=== PATIENT | male | born 1990 | race Caucasian/White ===

== ENCOUNTER 2021-02-15 18:09 | Emergency (ER) | payer OTHER ==
[2021-02-15 18:16] VITALS: TEMP 98; BMI 34.2
[2021-02-15] MEDS ORDERED: SODIUM CHLORIDE 0.9% 500 ML INFUS.BAG IV ONE ×2 (18:31→19:25)
[2021-02-15] MEDS ORDERED: KETOROLAC TROMETHAMINE 30 MG/1 ML VIAL IVPUSH ONE (18:31)
[2021-02-15] MEDS ORDERED: ONDANSETRON 4 MG/2 ML VIAL IVPUSH ONE (18:32)
[2021-02-15] MEDS ORDERED: KETOROLAC TROMETHAMINE 30 MG/1 ML VIAL ONE ×2 (18:34→18:39)
[2021-02-15] MEDS ORDERED: ONDANSETRON 4 MG/2 ML VIAL ONE ×2 (18:34→18:39)
[2021-02-15 18:56] LABS: BASO % 0.3 % (0-2.0); EOS % 0.1 % (0-4.5); HEMATOCRIT 46.7 % (35.4-49); HEMOGLOBIN 15.1 GM/dL (11.7-16.9); LYMPH % 9.6 % (8-40); MCH 25.9 pg (25.7-33.7); MCHC 32.2 g/dl (32.0-35.9); MEAN CELL VOLUME 80.6 fl (80-96); MEAN PLT VOLUME 10.8 fl (7.5-11.1); MONO % 6.1 % (3.8-10.2); NEUT % 83.9 % (42.8-82.8); PLATELET COUNT 229 K/MM3 (134-434); RDW 13.7 % (11.9-15.9); WHITE BLOOD COUNT 15.3 K/mm3 (4.0-10.0)
[2021-02-15 18:58] LABS: EPI CELLS 3 /uL (0-25.1); HYALINE CASTS 0 /uL (0-3.1); PH,URINE 7.5 (5.0-8.0); URINE APPEARANCE CLEAR; URINE BACTERIA 58 /uL (0-1359); URINE BILIRUBIN NEGATIVE (NEGATIVE); URINE COLOR YELLOW; URINE GLUCOSE (UA) NEGATIVE (NEGATIVE); URINE KETONE NEGATIVE (NEGATIVE); URINE LEUK ESTERASE NEGATIVE (NEGATIVE); URINE NITRITE NEGATIVE (NEGATIVE); URINE PROTEIN 1+ (NEGATIVE); URINE RBC 41 /uL (0-23.9); URINE UROBILINOGEN 0.2 mg/dL (0.2-1.0); URINE WBC 3 /uL (0-25.8)
[2021-02-15 19:12] LABS: ALBUMIN 4.3 g/dl (3.4-5.0)
[2021-02-15 19:13] LABS: BLOOD UREA NITROGEN 20.6 mg/dL (7-18)
[2021-02-15 19:16] LABS: CREATININE 1.4 mg/dL (0.55-1.3)
[2021-02-15 19:17] LABS: BILIRUBIN,TOTAL 0.2 mg/dL (0.2-1); TOT PROT 8.8 g/dl (6.4-8.2)
[2021-02-15 20:44] VITALS: BP 138/88; PULSE 70
== END 2021-02-15 20:46 | disposition home or self-care (01) ==
LOC: JER 18:09
PROC: 3E0333Z Introduction of Anti-inflammatory into Peripheral Vein, Percutaneous Approach (ICD-10-PCS; principal; 2021-02-15)
PROC: 3E033GC Introduction of Other Therapeutic Substance into Peripheral Vein, Percutaneous Approach (ICD-10-PCS; 2021-02-15)
DX: N20.0 Calculus of kidney (principal)
CPT/HCPCS: 36415; 74176-TC; 80053; 81003; 85025; 87086; 99284-25

== ENCOUNTER 2021-04-02 04:19 | Day surgery (SDC) | payer OTHER ==
[2021-04-01 16:48] VITALS: BMI 33.2
[2021-04-02] MEDS ORDERED: MIDAZOLAM HCL 2 MG/2 ML SINGLE DOSE VIAL ONE ×2 (12:56→13:25)
[2021-04-02] MEDS ORDERED: PROPOFOL 20 ML ONE ×3 (12:57)
[2021-04-02] MEDS ORDERED: LIDOCAINE HCL/PF 2% SDV 5ML VIAL ONE (12:57)
[2021-04-02] MEDS ORDERED: ceFAZolin SODIUM 1 GM VIAL IVPB ONE (13:05)
[2021-04-02] MEDS ORDERED: ceFAZolin SODIUM 1 GM VIAL ONE (13:08)
[2021-04-02] MEDS ORDERED: ePHEDrine SULFATE 50 MG/1 ML AMPULE ONE (13:44)
[2021-04-02] MEDS ORDERED: IOHEXOL 300 MG/ML INFUS..BTL IV ONE (13:44)
[2021-04-02] MEDS ORDERED: oxyCODONE HCL 5 MG TABLET PO PRN (14:01)
[2021-04-02] MEDS ORDERED: ONDANSETRON 4 MG/2 ML VIAL IVPUSH PRN (14:01)
[2021-04-02] MEDS ORDERED: LACTATED RINGERS SOLUTION 1,000 ML IV SCH (14:15)
[2021-04-02] MEDS ORDERED: oxyCODONE HCL 5 MG TABLET ONE (17:06)
[2021-04-02 17:15] VITALS: BP 134/82; PULSE 55; TEMP 97.7
== END 2021-04-02 18:25 | disposition home or self-care (01) ==
LOC: JASU-SURG 04:19
PROVIDERS: ATTEND Urology
PROC: 0T9780Z Drainage of Left Ureter with Drainage Device, Via Natural or Artificial Opening Endoscopic (ICD-10-PCS; principal; 2021-04-02 13:27)
DX: N20.1 Calculus of ureter (principal)
CPT/HCPCS: 94760

== ENCOUNTER 2021-05-26 04:19 | Day surgery (SDC) | payer OTHER ==
[2021-05-25 16:47] VITALS: BMI 32.8
[2021-05-26] MEDS ORDERED: MIDAZOLAM HCL 2 MG/2 ML SINGLE DOSE VIAL ONE (08:00)
[2021-05-26] MEDS ORDERED: PROPOFOL 20 ML ONE ×2 (08:06)
[2021-05-26] MEDS ORDERED: KETOROLAC TROMETHAMINE 30 MG/1 ML VIAL ONE (08:08)
[2021-05-26 10:29] VITALS: BP 132/80; PULSE 72; TEMP 97.7
== END 2021-05-26 10:40 | disposition home or self-care (01) ==
LOC: JASU-SURG 04:19
PROVIDERS: ATTEND Urology
PROC: 0TF4XZZ Fragmentation in Left Kidney Pelvis, External Approach (ICD-10-PCS; principal; 2021-05-26 08:00)
DX: N20.0 Calculus of kidney (principal)

== ENCOUNTER 2023-04-06 10:46 | Emergency (ER) | payer OTHER ==
[2023-04-06 11:02] VITALS: BP 138/84; PULSE 88; RESP 17; TEMP 97.8; BMI 30.6
[2023-04-06] MEDS ORDERED: IBUPROFEN 600 MG TABLET (FP) PO ONE ×2 (11:14→11:15)
== END 2023-04-06 11:49 | disposition home or self-care (01) ==
LOC: JERFT 10:46 → JER 10:46 → JERFT 11:49
DX: R09.81 Nasal congestion (principal); R51.9 Headache, unspecified; R07.0 Pain in throat; R05.9 Cough, unspecified; R09.3 Abnormal sputum; J01.10 Acute frontal sinusitis, unspecified; Z20.822 Contact with and (suspected) exposure to COVID-19
CPT/HCPCS: 0241U-QW; 87651; 99283-25

== ENCOUNTER 2023-09-12 12:08 | Emergency (ER) | payer OTHER ==
[2023-09-12 12:14] VITALS: RESP 18; BMI 27.1
[2023-09-12] MEDS ORDERED: IBUPROFEN 600 MG TABLET (FP) PO ONE ×2 (13:04→13:05)
[2023-09-12 13:28] LABS: THROAT:GRP A STREP NOT DETECTED (NOTDETECTED)
[2023-09-12 13:46] VITALS: BP 144/78; PULSE 72; TEMP 98
== END 2023-09-12 13:56 | disposition home or self-care (01) ==
LOC: JERFT 12:08
DX: J02.9 Acute pharyngitis, unspecified (principal); M79.10 Myalgia, unspecified site; R50.9 Fever, unspecified; R61 Generalized hyperhidrosis; R05.9 Cough, unspecified; R51.9 Headache, unspecified; U07.1 COVID-19
CPT/HCPCS: 0241U-QW; 87651; 99283-25